=== PATIENT | male | born 1970 | race African-American/Black ===

== ENCOUNTER 2018-11-25 23:55 | Emergency (ER) | payer MEDICAID ==
[~2018-11-25] VITALS: Ht 177.8 cm; Wt 1226.0 kg
[~2018-11-25 23:55] MED LIST: ADVAIR; ASPIRIN; BENAZEPRIL; HYDR-3927; MAXZIDE; METH500T
[2018-11-26] MEDS ORDERED: KETOROLAC 60MG/2ML VIAL IM ONE (00:30)
[2018-11-26 02:15] VITALS: BP 165/87
== END 2018-11-26 05:00 | disposition home or self-care (01) ==
LOC: ER 11-26 04:55
DX: M54.6 Pain in thoracic spine (principal); I10 Essential (primary) hypertension
CPT/HCPCS: 71045; 93005; 96372; 99283; J1885

== ENCOUNTER 2019-04-24 03:25 | Emergency (ER) | payer MEDICAID ==
[~2019-04-24] VITALS: Ht 177.8 cm; Wt 127.0 kg
[2019-04-24 05:16] LABS: BASOPHILS % 2.1 % (0.0-2.0); EOSINOPHILS % 5.8 % (0.0-5.0); HEMATOCRIT. 41.5 % (42.0-52.0); HEMOGLOBIN. 13.7 g/dL (14.0-18.0); LYMPHOCYTES % 29.7 % (20.0-50.0); MEAN CORPUSCULAR HEMOGLOBIN 28.2 pg (28.0-32.0); MEAN CORPUSCULAR VOLUME 85.4 fL (80.0-94.0); MEAN PLATELET VOLUME 7.7 fl (7.4-10.4); MONOCYTES % 7.6 % (2.0-8.0); NEUTROPHILS % 54.8 % (40.0-76.0); PLATELET 219 x1000/uL (130-400); RED BLOOD CELL COUNT 4.86 mill/uL (4.7-6.1); RED CELL DISTRIBUTION WIDTH 15.9 % (11.6-14.6)
[2019-04-24 05:21] LABS: CHLORIDE 107 mEq/L (98-107)
[2019-04-24 10:22] VITALS: BP 126/74
== END 2019-04-24 10:51 | disposition home or self-care (01) ==
LOC: ER 03:25
DX: R00.2 Palpitations (principal); R07.89 Other chest pain; R06.02 Shortness of breath; I10 Essential (primary) hypertension; E78.00 Pure hypercholesterolemia, unspecified; J45.909 Unspecified asthma, uncomplicated
CPT/HCPCS: 36415; 71045; 80053; 83880; 84484; 85025; 93005; 93971; 99284

== ENCOUNTER 2023-12-11 02:56 | Emergency (ER) | payer MEDICAID ==
[~2023-12-11] VITALS: Ht 175.3 cm; Wt 130.0 kg
[2023-12-11 03:00] VITALS: O2SAT 97
[2023-12-11] MEDS ORDERED: ASPIRIN 81MG TABLET PO ONE (03:30)
[2023-12-11 03:51] LABS: BASOPHILS % 1.5 % (0.0-2.0); EOSINOPHILS % 2.7 % (0.0-5.0); HEMATOCRIT. 39.4 % (42.0-52.0); HEMOGLOBIN. 12.8 g/dL (14.0-18.0); LYMPHOCYTES % 35.5 % (20.0-50.0); MEAN CORPUSCULAR HEMOGLOBIN 28.3 pg (28.0-32.0); MEAN CORPUSCULAR HGB CONC 32.6 g/dL (31.0-37.0); MEAN CORPUSCULAR VOLUME 87.1 fL (80.0-94.0); MEAN PLATELET VOLUME 7.5 fl (7.4-10.4); MONOCYTES % 7.3 % (2.0-8.0); PLATELET 217 x1000/uL (130-400); RED BLOOD CELL COUNT 4.53 mill/uL (4.7-6.1); WHITE BLOOD COUNT 12.2 x1000/uL (4.5-11.0)
[2023-12-11 03:59] LABS: CHLORIDE 110 mEq/L (98-107); POTASSIUM 2.9 mEq/L (3.5-5.1); SODIUM 141 mEq/L (136-145)
[2023-12-11 04:00] LABS: CALCIUM 8.9 mg/dL (8.7-10.4); CARBON DIOXIDE 27 mEq/L (21-32)
[2023-12-11 04:05] LABS: CREATININE 1.5 mg/dL (0.6-1.3); GLUCOSE 109 mg/dL (70-105); UREA NITROGEN BLOOD 24 mg/dL (9-23)
[2023-12-11 04:06] LABS: TROPONIN I HIGH SENSITIVITY 4 ng/L (3.0-53)
[2023-12-11] MEDS: ASPIRIN 81MG TABLET PO NR (04:37)
[2023-12-11 05:59] LABS: TROPONIN I HIGH SENSITIVITY 5 ng/L (3.0-53)
[2023-12-11 06:38] VITALS: BP 111/61; PULSE 69; RESP 18; TEMP 36.89184; O2SAT 98
== END 2023-12-11 06:42 | disposition left against medical advice (07) ==
LOC: ER 03:02
DX: R00.2 Palpitations (principal); E87.6 Hypokalemia; F41.9 Anxiety disorder, unspecified; I10 Essential (primary) hypertension; Z88.0 Allergy status to penicillin; Z79.899 Other long term (current) drug therapy
CPT/HCPCS: 80048; 83880; 85025; 84484; 36415; 71045; 99284; Z7610

== ENCOUNTER 2024-08-19 13:49 | Emergency (ER) | payer MEDICAID ==
[~2024-08-19] VITALS: Ht 177.8 cm; Wt 127.0 kg
[2024-08-19 13:54] VITALS: O2SAT 98
[2024-08-19 14:10] VITALS: BP 135/88; PULSE 76; RESP 18; TEMP 36.9; O2SAT 99
[2024-08-19 15:11] LABS: BASOPHILS % 1.3 % (0.0-2.0); EOSINOPHILS % 5.4 % (0.0-5.0); HEMATOCRIT. 41.9 % (42.0-52.0); HEMOGLOBIN. 13.8 g/dL (14.0-18.0); LYMPHOCYTES % 37.3 % (20.0-50.0); MEAN CORPUSCULAR HEMOGLOBIN 27.8 pg (28.0-32.0); MEAN CORPUSCULAR HGB CONC 32.8 g/dL (31.0-37.0); MEAN CORPUSCULAR VOLUME 84.7 fL (80.0-94.0); MEAN PLATELET VOLUME 7.7 fl (7.4-10.4); MONOCYTES % 5.9 % (2.0-8.0); NEUTROPHILS % 50.1 % (40.0-76.0); PLATELET 227 x1000/uL (130-400); RED BLOOD CELL COUNT 4.95 mill/uL (4.7-6.1); RED CELL DISTRIBUTION WIDTH 15.6 % (11.6-14.6); WHITE BLOOD COUNT 6.6 x1000/uL (4.5-11.0)
[2024-08-19 15:21] LABS: CARBON DIOXIDE 26 mEq/L (21-32); CHLORIDE 105 mEq/L (98-107); POTASSIUM 3.3 mEq/L (3.5-5.1); SODIUM 142 mEq/L (136-145)
[2024-08-19 15:27] LABS: CREATININE 1.3 mg/dL (0.6-1.3); GLUCOSE 104 mg/dL (70-105); TROPONIN I HIGH SENSITIVITY 4 ng/L (3.0-53); UREA NITROGEN BLOOD 19 mg/dL (9-23)
[2024-08-19 15:35] LABS: CLARITY URINE CLEAR (CLEAR); COLOR URINE YELLOW (YELLOW); GLUCOSE URINE NEGATIVE (NEGATIVE); KETONES URINE NEGATIVE (NEGATIVE); LEUKOCYTE ESTERASE URINE NEGATIVE (NEGATIVE); NITRITE URINE NEGATIVE (NEGATIVE); OCCULT BLOOD URINE NEGATIVE (NEGATIVE); PROTEIN URINE NEGATIVE (NEGATIVE); SPECIFIC GRAVITY URINE 1.025 (1.005-1.030)
[2024-08-19] MEDS ORDERED: P50 MT (15:58)
[2024-08-19] MEDS ORDERED: IPRA3AMP31 NEB (15:58)
[2024-08-19] MEDS: POTASSIUM CHLORIDE 20MEQ/PACKET PO ONE (16:12)
[2024-08-19] MEDS: PREDNISONE 20MG TABLET PO ONE (16:12)
[2024-08-19] MEDS: ASPIRIN 325MG EC TABLET PO ONE (16:17)
[2024-08-19] MEDS ORDERED: CLIN-194 MT (16:23)
== END 2024-08-19 16:19 | disposition home or self-care (01) ==
LOC: ER 13:49
DX: J45.901 Unspecified asthma with (acute) exacerbation (principal); G47.30 Sleep apnea, unspecified; R07.89 Other chest pain; F17.200 Nicotine dependence, unspecified, uncomplicated; I10 Essential (primary) hypertension; K02.9 Dental caries, unspecified; Z79.51 Long term (current) use of inhaled steroids; Z79.52 Long term (current) use of systemic steroids; Z88.0 Allergy status to penicillin; Z98.890 Other specified postprocedural states
CPT/HCPCS: 99285; 71045; 80048; 81003; 85025; 84484; 36415; 93005; J7512